=== PATIENT | male | born 1960 | race Caucasian/White ===

== ENCOUNTER 2021-10-21 12:09 | Emergency (ER) | payer BC ==
[~2021-10-21] VITALS: Ht 177.8 cm; Wt 117.9 kg
[2021-10-21 13:50] LABS: HEMATOCRIT 45.2 % (36.7-47.1); MEAN CORPUSCULAR HEMOGLOBIN 28.9 uug (23.8-33.4); MEAN CORPUSCULAR VOLUME 83.7 fL (73.0-96.2); PLATELET COUNT (AUTO) 130 K/uL (152-348)
[2021-10-21 13:59] LABS: CREATININE 1.1 mg/dL (0.6-1.3); POTASSIUM 3.6 mmol/L (3.5-5.1)
[2021-10-21] MEDS ORDERED: LIDOCAINE 5% PATCH TD ONE ×2 (14:15→14:28)
[2021-10-21] MEDS ORDERED: CYCLOBENZAPRINE HCL 10 MG TABLET PO ONE (14:15)
[2021-10-21] MEDS ORDERED: CYCLOBENZAPRINE HCL 10 MG TABLET ONE (14:29)
[2021-10-21] MEDS ORDERED: METH-807 PO (15:05)
--- NOTE | 2021-10-21 15:07 | NUR ---
Received patient for discharge to home: 1st contact with patient, AOx4, respiration :easy, marked decreased pains expressed. Patient discharged to home in stable condition with steady gait. Written and verbal after care instructions given. Patient verbalized understanding and compliance of instructions. Stressed follow up with primary doctor or return to ER for worsening s/s.
== END 2021-10-21 15:13 | disposition home or self-care (01) ==
LOC: ER 12:09
DX: M79.661 Pain in right lower leg (principal); I10 Essential (primary) hypertension; E11.9 Type 2 diabetes mellitus without complications
CPT/HCPCS: 36415; 85025; 85730; A4663